=== PATIENT | female | born 1990 | race American Indian/Alaskan Native ===

== ENCOUNTER 2017-06-19 15:44 | Emergency (ER) | payer OTHER ==
[2017-06-19 15:53] VITALS: BP 138/92
--- NOTE | 2017-06-19 16:32 | Emergency Department Report ---
Chief Complaint: Abdominal Pain Stated Complaint: ABD PAIN X 1 WEEK/VOMITING Time Seen by Provider: 06/19/17 16:29 - HPI History of Present Illness: PT c/o abd pain since Monday. + N/V PT states she was seen at and had IVFs and was told that US of gallbladder was "fine" - ROS Review of Systems: + acid reflux + n/v - dysuria lmp current - Exam Vital Signs: Vital Signs 06/19/17 15:50 Temperature 98.4 F Pulse Rate 88 Respiratory 18 Rate Blood Pressure 138/92 O2 Sat by Pulse 98 Oximetry Physical Exam: pt's abd is soft, - RLQ or RUQ ttp + epigastric tenderness MSE screening note: Focused history and physical exam performed. Due to findings the following was ordered: ED Disposition for MSE Condition: Stable Instructions: Abdominal Pain (ED)
[2017-06-19 17:18] LABS: Alanine Aminotransferase 10 units/L (7-56); Albumin 4.5 g/dL (3.9-5); Albumin/Globulin Ratio 1.3 %; Alkaline Phosphatase 56 units/L (35-129); Anion Gap 23 mmol/L; Blood Urea Nitrogen 8 mg/dL (7-17); Calcium 9.2 mg/dL (8.4-10.2); Carbon Dioxide 19 mmol/L (22-30); Chloride 94.3 mmol/L (98-107); Glucose 117 mg/dL (65-100); Lipase 17 units/L (13-60); Potassium 3.6 mmol/L (3.6-5.0); Sodium 133 mmol/L (137-145); Total Protein 8.1 g/dL (6.3-8.2)
[2017-06-19 17:28] LABS: Hematocrit 39.2 % (30.3-42.9); Hemoglobin 12.7 gm/dl (10.1-14.3); Mean Corpuscular HGB Conc 33 % (30-34); Mean Corpuscular Hemoglobin 30 pg (28-32); Mean Corpuscular Volume 92 fl (79-97); Platelet Count 283 K/mm3 (140-440); Red Blood Count 4.27 M/mm3 (3.65-5.03); Red Cell Distribution Width 12.3 % (13.2-15.2); White Blood Count 11.5 K/mm3 (4.5-11.0)
[2017-06-19 18:57] LABS: Basophils % (Manual) 0 % (0.0-1.8); Blastocytes % (Manual) 0 %; Eosinophils % (Manual) 0 % (0.0-4.3); Total Cells Counted Percent 0
[2017-06-19 18:58] LABS: Ovalocytes Few
[2017-06-19 18:59] LABS: Diff Status Complete
== END 2017-06-19 20:45 | disposition left against medical advice (07) ==
LOC: ED 15:44
DX: R10.9 Unspecified abdominal pain (principal); R11.11 Vomiting without nausea; Z53.21 Procedure and treatment not carried out due to patient leaving prior to being seen by health care provider
CPT/HCPCS: 36415; 80053; 83690; 84703; 85007; 85025